=== PATIENT | male | born 1950 | race African-American/Black ===

== ENCOUNTER 2021-12-09 11:38 | Emergency (ER) | payer OTHER ==
[~2021-12-09] VITALS: Ht 180.3 cm; Wt 83.0 kg
[2021-12-09] MEDS ORDERED: HYDRALAZINE HCL 50MG TABLET PO ONE (12:45)
[2021-12-09 12:56] LABS: BASOPHILS % 0.9 % (0.0-2.0); EOSINOPHILS % 3.7 % (0.0-5.0); HEMATOCRIT. 49.5 % (42.0-52.0); HEMOGLOBIN. 16.7 g/dL (14.0-18.0); LYMPHOCYTES % 35.2 % (20.0-50.0); MEAN CORPUSCULAR HEMOGLOBIN 32.4 pg (28.0-32.0); MEAN PLATELET VOLUME 10.2 fl (7.4-10.4); MONOCYTES % 7.6 % (2.0-8.0); NEUTROPHILS % 52.6 % (40.0-76.0); PLATELET 202 x1000/uL (130-400); RED BLOOD CELL COUNT 5.15 mill/uL (4.7-6.1); RED CELL DISTRIBUTION WIDTH 12.4 % (11.6-14.6)
[2021-12-09 12:58] LABS: CHLORIDE 109 mEq/L (98-107)
[2021-12-09] MEDS ORDERED: LIDO1ADH23 TP (13:45)
[2021-12-09 14:19] VITALS: BP 161/76
== END 2021-12-09 14:21 | disposition home or self-care (01) ==
LOC: ER 12:39
DX: I10 Essential (primary) hypertension (principal)
CPT/HCPCS: 36415; 71045; 80053; 85025; 93005; 99284

== ENCOUNTER 2021-12-21 01:08 | Emergency (ER) | payer MEDICARE, OTHER ==
[~2021-12-21] VITALS: Ht 180.3 cm; Wt 82.6 kg
[~2021-12-21 01:08] MED LIST: LIDO1ADH23 TP
[2021-12-21] MEDS ORDERED: LIDOCAINE 5% PATCH TOP SCH (04:00)
[2021-12-21] MEDS ORDERED: KETOROLAC 60MG/2ML VIAL IM ONE (04:00)
[2021-12-21] MEDS ORDERED: CYCLOBENZAPRINE 10MG TABLET PO ONE (04:00)
[2021-12-21 04:19] VITALS: BP 176/89
[2021-12-21] MEDS ORDERED: LIDO700A30 TP (04:48)
[2021-12-21] MEDS ORDERED: IBUP-2029 MT (04:48)
== END 2021-12-21 05:04 | disposition home or self-care (01) ==
LOC: ER 01:08
DX: M54.50 Low back pain, unspecified (principal); I10 Essential (primary) hypertension
CPT/HCPCS: 96372; 99283; J1885

== ENCOUNTER 2023-01-26 12:19 | Emergency (ER) | payer MEDICARE ==
[~2023-01-26] VITALS: Ht 180.3 cm; Wt 77.0 kg
[~2023-01-26 12:19] MED LIST changes: +IBUP-2029 MT; +LIDO700A30 TP
[2023-01-26 12:40] VITALS: BP 146/77; RESP 20; TEMP 98.3; O2SAT 100
[2023-01-26 12:45] VITALS: PULSE 94
[2023-01-26] MEDS ORDERED: ACET-2708 MT (16:14)
[2023-01-26] MEDS ORDERED: CEPH500C2 MT (16:14)
== END 2023-01-26 16:44 | disposition home or self-care (01) ==
LOC: ER 12:42
DX: L03.031 Cellulitis of right toe (principal); I10 Essential (primary) hypertension
CPT/HCPCS: 73630; 99283